=== PATIENT | female | born 1990 | race Caucasian/White ===

== ENCOUNTER → 2016-05-22 | Outpatient (CLI) | payer BC ==
[2016-05-22 08:58] LABS: Basophils % (A) 1 %; CH 31.8; CHCM 34.8; Eosinophils # (A) 0.1 k/uL (0-0.7); Eosinophils % (A) 2 %; HDW 2.79; Luc % (Auto) 2; Lymphocytes # (A) 1.8 k/uL (1.0-4.8); Lymphocytes % (A) 38 %; MCH 31.5 pg (25.0-35.0); MCHC 34.2 g/dL (31.0-37.0); Mean Platelet Volume 7.3; Monocytes # (A) 0.3 k/uL (0-1.0); Monocytes % (A) 7 %; Neutrophils # (A) 2.4 k/uL (1.3-7.7); Neutrophils % (A) 51 %; RBC 4.46 m/uL (3.80-5.40); RDW 12.8 % (11.5-15.5); WBC 4.8 k/uL (3.8-10.6)
== END | disposition home or self-care (01) ==
LOC: LABWHC1 08:28
PROVIDERS: ATTEND Psychiatry & Neurology Neurology
DX: G40.219 Localization-related (focal) (partial) symptomatic epilepsy and epileptic syndromes with complex partial seizures, intractable, without status epilepticus (principal)
CPT/HCPCS: 36415; 80164; 84450; 84460; 85025

== ENCOUNTER → 2016-05-22 | Outpatient (CLI) | payer BC ==
--- NOTE | 2016-05-22 10:37 | MR ---
EXAMINATION TYPE: MR lumbar spine wo con DATE OF EXAM: 05/22/2016 10:13 AM COMPARISON: NONE HISTORY: cerebral palsy w/spastic, difficulty walking TECHNIQUE: Multiplanar, multisequence images of the lumbar spine were acquired. L1-L2: Normal disc appearance without desiccation. No herniation, protrusion or disc bulging. No ca nal stenosis is present. Foramina are patent bilaterally. L2-L3: Normal disc appearance without desiccation. No herniation, protrusion or disc bulging. No ca nal stenosis is present. Foramina are patent bilaterally. L3-L4: Normal disc appearance without desiccation. No herniation, protrusion or disc bulging. No ca nal stenosis is present. Foramina are patent bilaterally. L4-L5: Mild disc desiccation noted. Mild posterior disc bulge. Retrolisthesis of L4 and L5 of 5.7 mm related to facet joint arthropathy. No central stenosis or ngoc herniation. L5-S1: Severe disc desiccation noted. Posterior disc bulge with annular tear. No evidence for ngoc h erniation or central stenosis. Grade 1 anterolisthesis L5 on S1 of 5 mm related to severe facet joint arthropathy. Lumbar segments are intact. No paraspinal masses are identified. Conus medullaris has a normal appe arance. IMPRESSION: 1. Degenerative disc disease with disc bulging as noted. 2. Retrolisthesis of L4 and L5 and anterolisthesis L5 on S1.
== END | disposition home or self-care (01) ==
LOC: RADMRIMAIN 09:36
PROVIDERS: ATTEND Psychiatry & Neurology Neurology
DX: M51.36 Other intervertebral disc degeneration, lumbar region (principal); M43.16 Spondylolisthesis, lumbar region; M43.17 Spondylolisthesis, lumbosacral region; G80.1 Spastic diplegic cerebral palsy
CPT/HCPCS: 72148

== ENCOUNTER → 2017-05-27 | Outpatient (CLI) | payer BC | END | disposition home or self-care (01) | LOC: LABWHC1 08:31 | PROVIDERS: ATTEND Psychiatry & Neurology Neurology | DX: G40.219 Localization-related (focal) (partial) symptomatic epilepsy and epileptic syndromes with complex partial seizures, intractable, without status epilepticus (principal) | CPT/HCPCS: 36415; 80164 ==

== ENCOUNTER → 2018-01-05 | Outpatient (CLI) | payer BC ==
[2018-01-05 09:02] LABS: HCT 40.2 % (34.0-46.0); HGB 13.5 gm/dL (11.4-16.0); RBC 4.44 m/uL (3.80-5.40); WBC 5.8 k/uL (3.8-10.6)
[2018-01-05 09:03] LABS: Basophils % (A) 1 %; Eosinophils # (A) 0.1 k/uL (0-0.7); Eosinophils % (A) 2 %; Lymphocytes # (A) 2.1 k/uL (1.0-4.8); Lymphocytes % (A) 36 %; MCH 30.4 pg (25.0-35.0); MCHC 33.7 g/dL (31.0-37.0); MCV 90.4 fL (80.0-100.0); Mean Platelet Volume 7.3; Monocytes # (A) 0.3 k/uL (0-1.0); Monocytes % (A) 5 %; Neutrophils # (A) 3.1 k/uL (1.3-7.7); Neutrophils % (A) 54 %; Platelet Count 227 k/uL (150-450); RDW 12.7 % (11.5-15.5)
[2018-01-05 16:13] LABS: Valproic Acid (Depakene) 98.8 ug/mL (50.0-100.0)
[2018-01-05 16:18] LABS: Vitamin D 25 Hydroxy 22.2 ng/mL (30.0-100.0)
[2018-01-05 16:39] LABS: Folate, Serum >24.0 ng/mL
[2018-01-05 17:19] LABS: Albumin 4.5 g/dL (3.80-4.90); Albumin/Globulin Ratio 1.61 (1.20-2.10); Anion Gap 8.7 mmol/L (4.00-12.00); Carbon Dioxide 22.3 mmol/L (21.6-31.8); Globulin 2.8 g/dL (2.1-3.7); Total Bilirubin 0.4 mg/dL (0.2-1.2); Total Protein 7.3 g/dL (6.2-8.2)
[2018-01-05 20:34] LABS: Hemoglobin A1C 4.5 % (4.0-6.0)
== END | disposition home or self-care (01) ==
LOC: LABWHC1 07:42
PROVIDERS: ATTEND Psychiatry & Neurology Neurology
DX: Z00.00 Encounter for general adult medical examination without abnormal findings (principal); G40.219 Localization-related (focal) (partial) symptomatic epilepsy and epileptic syndromes with complex partial seizures, intractable, without status epilepticus; R56.9 Unspecified convulsions; R41.3 Other amnesia
CPT/HCPCS: 36415; 80053; 80061; 80164; 82306; 82607; 82746; 83036; 84425; 85025

== ENCOUNTER → 2020-01-19 | Outpatient (CLI) | payer BC ==
--- NOTE | 2020-01-19 11:44 | US ---
EXAMINATION TYPE: US abdomen complete DATE OF EXAM: 01/19/2020 COMPARISON: NONE CLINICAL HISTORY: R10.9 Abdominal pain. Right lateral abdominal pain; patient has cerebral palsy - on medications for seizures and spasms EXAM MEASUREMENTS: Liver Length: 15.2 cm Gallbladder Wall: 0.4 cm CBD: 0.4 cm Spleen: 9.9 cm Right Kidney: 11.4 x 5.3x 4.5 cm Left Kidney: 11.8 x 5.9 x 4.4 cm Pancreas: mildly heterogeneous Liver: no masses seen Gallbladder: multiple, non mobile, shadowing stones with STANISLAW sign noted mid and fundal gallbladder; thickened wall is noted Evidence for sonographic Acosta's sign: no CBD: wnl Spleen: wnl Right Kidney: No hydronephrosis or masses seen Left Kidney: mid pole parallel hyperechoic focus with some shadowing may be calcified vessel marti. Upper IVC: wnl Abd Aorta: wnl There is no ascites. IMPRESSION: Cholelithiasis. Left nephrolithiasis may be present.
== END | disposition home or self-care (01) ==
LOC: RADUSWWP 10:51
PROVIDERS: ATTEND Nurse Practitioner Adult Health
DX: K80.20 Calculus of gallbladder without cholecystitis without obstruction (principal)
CPT/HCPCS: 76700

== ENCOUNTER 2020-02-17 09:56 | Day surgery (SDC) | payer BC ==
[2020-02-15 15:51] VITALS: BMI 28.3
--- NOTE | 2020-02-17 06:42 | P.GSHP ---
History of Present Illness H&P Date: 02/17/20 CHIEF COMPLAINT: Cholecystitis HISTORY OF PRESENT ILLNESS: The patient is a 29-year-old female who presents with history of epigastric including right upper quadrant abdominal pain. She underwent diagnostic studies for her gallbladder. Separately her clinical picture was consistent with cholecystitis. Now she presents for surgical intervention. PAST MEDICAL HISTORY: Please see list PAST SURGICAL HISTORY: Please see list MEDICATIONS: Please see list ALLERGIES: Please see list SOCIAL HISTORY: Please see list FAMILY HISTORY: Please see list REVIEW OF ORGAN SYSTEMS: CONSTITUTIONAL: No reports of fevers or chills. PSYCH: No depression or suicidal ideation. Has cognitive delay HEMATOLOGIC: No personal or family history of DVTs or pulmonary emboli. SKIN: No skin cancer. PHYSICAL EXAM: VITAL SIGNS: Afebrile vital signs stable GENERAL: Well-developed pleasant in no acute distress. HEENT: No scleral icterus. Extraocular movements grossly intact. Moist buccal mucosa. NECK: Supple without lymphadenopathy. CHEST: Unlabored respirations. Equal bilateral excursions. CARDIOVASCULAR: Regular rate regular rhythm rhythm. Distal 2+ pulses. ABDOMEN: Soft, nondistended. Tender along the epigastrium and right upper quadrant. MUSCULOSKELETAL: No clubbing, cyanosis, or edema. NEURO: Cranial nerves II to XII within normal limits. No focal or lateralizing signs. PSYCH: Alert and oriented to person, place and time. SKIN: Well-perfused good skin turgor. ASSESSMENT: 1. Epigastric and right upper quadrant abdominal pain 2. Chronic cholecystitis 3. Symptomatic gallstones. PLAN: 1. Will need a robotic cholecystectomy possible open. Benefits and risks were described. 2. Heparin for DVT prophylaxis 5000 units. 3. Antibiotic prophylaxis. Past Medical History Past Medical History: Seizure Disorder Additional Past Medical History / Comment(s): Cerebral Palsy. last seizure 2015. doesnt walk uses W/C has AFO on legs to help keep legs straight History of Any Multi-Drug Resistant Organisms: None Reported Past Surgical History: No Surgical Hx Reported Additional Past Surgical History / Comment(s): BILATERAL LEG LENGTHENING, BILATERAL EYE SURGERY (MUSCULAR TIGHTENING) multiple times with bone taken from hip placed in ankle Past Anesthesia/Blood Transfusion Reactions: Family History of Problems w/ Anesthesia, Postoperative Nausea & Vomiting (PONV) Additional Past Anesthesia/Blood Transfusion Reaction / Comment(s): mother states Eliane may become extremely anxious prior to procedure and may require medication for this (seizure has occured in past with extreme anxiety). MOM- PONV Smoking Status: Never smoker - Past Family History Mother Family Medical History: No Reported History Medications and Allergies Home Medications Medication Instructions Recorded Confirmed Type Baclofen [Lioresal] 20 mg PO TID 03/11/14 02/15/20 History Divalproex [Depakote] 250 mg PO TID 03/11/14 02/15/20 History LORazepam [Ativan] 1 mg PO TID PRN 05/16/14 02/15/20 History Divalproex Sodium [Depakote] 125 mg PO DAILY 03/05/15 02/15/20 History Cholecalciferol [Vitamin D3 (25 1,000 unit PO DAILY 02/15/20 02/15/20 History Mcg = 1000 Iu)] Topamax (Unkn.Dose) 1 tab PO BID 02/15/20 02/15/20 History medroxyPROGESTERone [Depo-Provera] 150 mg IM Q3M 02/15/20 02/15/20 History Allergies Allergy/AdvReac Type Severity Reaction Status Date / Time sulfamethoxazole Allergy reddened Verified 02/15/20 15:34 [From Bactrim] skin and itchy trimethoprim [From Bactrim] Allergy reddened Verified 02/15/20 15:34 skin and itchy
[~2020-02-17 09:56] MED LIST: ACETAMINOPHEN TAB 500 MG TAB PO STA; DEXAMETHASONE SOD PHOSPHATE 4 MG/ML 1 ML VIAL IV STA; GABAPENTIN 300 MG CAP PO STA; HEPARIN SODIUM,PORCINE 5,000 UNIT/ML 1 ML VIAL SQ PRN; INDOCYANINE GREEN 25 MG VIAL IV STA; LACTATED RINGERS 1,000 ML IV SCH; LIDOCAINE 1% (10MG/ML) FOR IV START INTRADERMA PRN
[2020-02-17] MEDS ORDERED: NORFLURANE/PENTAFLUOROPROPANE 103.5 ML SPRAY (PAIN EASE) TOPICAL ONE (10:10)
[2020-02-17] MEDS ORDERED: ONDANSETRON 4 MG/2 ML VIAL IVP ONE (10:36)
[2020-02-17] MEDS ORDERED: LACTATED RINGERS 1,000 ML IV ONE ×2 (10:37→15:03)
[2020-02-17 10:54] LABS: ALT 21 U/L (4-34); AST 33 U/L (14-36); African American GFR (CKD) >90 (>60 ml/min/1.73 sqM); Albumin 4.6 g/dL (3.5-5.0); Alkaline Phosphatase 53 U/L (38-126); Anion Gap 13 mmol/L; Blood Urea Nitrogen 9 mg/dL (7-17); Calcium 9.6 mg/dL (8.4-10.2); Carbon Dioxide 19 mmol/L (22-30); Chloride 110 mmol/L (98-107); Glucose 91 mg/dL (74-99); Non-African American GFR(CKD) >90 (>60 ml/min/1.73 sqM); Potassium 4.2 mmol/L (3.5-5.1); Sodium 142 mmol/L (137-145); Total Bilirubin 0.7 mg/dL (0.2-1.3); Total Protein 8.1 g/dL (6.3-8.2)
[2020-02-17 10:57] LABS: Basophils % (A) 1 %; Eosinophils # (A) 0.2 k/uL (0-0.7); Eosinophils % (A) 3 %; HCT 41.6 % (34.0-46.0); HGB 14.2 gm/dL (11.4-16.0); Lymphocytes # (A) 2.3 k/uL (1.0-4.8); Lymphocytes % (A) 39 %; MCH 30.9 pg (25.0-35.0); MCHC 34.2 g/dL (31.0-37.0); MCV 90.5 fL (80.0-100.0); Mean Platelet Volume 7.3; Monocytes # (A) 0.3 k/uL (0-1.0); Monocytes % (A) 6 %; Neutrophils % (A) 51 %; Platelet Count 258 k/uL (150-450); RDW 12.5 % (11.5-15.5)
[2020-02-17] MEDS ORDERED: HYDROmorphone (PF) 1 MG/ML ONE (11:08)
[2020-02-17] MEDS ORDERED: INDOCYANINE GREEN 25 MG VIAL IV ONE (11:08)
[2020-02-17] MEDS ORDERED: ROCURONIUM 10 MG/ML (10 ML VIAL) IV ONE (11:08)
[2020-02-17] MEDS ORDERED: fentaNYL (PF) 50 MCG/ML 2 ML AMP ONE (11:08)
[2020-02-17] MEDS ORDERED: LIDOCAINE 1% INJ 10MG/ML (20 ML MDV) ONE (11:08)
[2020-02-17] MEDS ORDERED: NEOSTIGMINE 1 MG/ML 10 ML VIAL ONE (11:08)
[2020-02-17] MEDS ORDERED: GLYCOPYRROLATE 0.2 MG/ML 2 ML VIAL ONE (11:08)
[2020-02-17] MEDS ORDERED: PROPOFOL 10 MG/ML 20 ML VIAL IV ONE (11:08)
[2020-02-17] MEDS ORDERED: MIDAZOLAM 2 MG/2 ML VIAL ONE (11:08)
[2020-02-17] MEDS ORDERED: LIDOCAINE 1%-EPI 1:100,000 20 ML VIAL SQ ONE (11:43)
[2020-02-17 12:48] VITALS: TEMP 100.2
[2020-02-17 12:54] VITALS: RESP 16
--- NOTE | 2020-02-17 13:19 | P.OP ---
Date of Procedure: 02/17/20 Description of Procedure: SURGEON: AGUEDA MURRAY MD PREOPERATIVE DIAGNOSES: 1. Symptomatic gallstone 2. Right upper quadrant abdominal pain 3. Cerebral palsy 4. Seizure disorder 5. Wheelchair status POSTOPERATIVE DIAGNOSES: 1. Symptomatic gallstone 2. Right upper quadrant abdominal pain 3. Chronic cholecystitis 4. Seizure disorder 5. Wheelchair status 6. 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 SPECIMENS REMOVED: Gallbladder. COMPLICATIONS: None. Operative Findings: 1. Large gallstone were 2 cm within the gallbladder 2. Cystic artery aneurysmal dilation identified and undisturbed 3. Abnormal contour of gallbladder adding complexity to case 4. Left upper quadrant incision widened for removal of large gallbladder INDICATIONS: The patient is a 29-year-old female who presents with symptomatic gallstones. Robotic assisted laparoscopic approach was described. Benefits and risks of the procedure including but not limited to bleeding, infection, injury to the biliary tree was described. Informed consent was obtained. DESCRIPTION OF PROCEDURE: Patient was brought to the operating room, placed in supine position. After general induction, the abdomen had been prepped and draped in standard sterile fashion. The robotic da Misha XI system was primed. After a timeout protocol was performed, the patient had been prepped and draped in standard sterile fashion. The patient was injected with indocyanine green. A 5 mm 0 degrees laparoscopic trocar entry was performed along the left upper quadrant. The abdomen insufflated to 15 mmHg pressure which was tolerated well. Diagnostic laparoscopy demonstrated no injury to bowel viscera or mesentery. The liver surface was unremarkable. Next, two 8 mm robotic ports were placed along the right upper abdomen. The camera 8-mm port was maintained along the epigastrium. Another 8 mm port was placed along the left upper abdominal wall after exchanging the 5 mm port. Please note that the ports were placed at least 10 to 15 cm away from the target anatomy of the gallbladder. The robot was docked along the left lateral abdomen. The patient was repositioned in reverse Trendelenburg position. Using a grasper for arm 3, a grasper for arm 4, including hook cautery for arm 1, the robotic system was docked and primed as described. Instruments were interchanged by the supply assistant including hook cautery, Bovie cautery and clip appliers. I had sat at the console. The gallbladder had an abnormal contour adding complexity to the case. Cystic artery aneurysmal dilation was identified and undisturbed. Next attention was brought to the infundibulum and cystic structures. The infundibulum and cystic duct were dissected free from surrounding tissues. The cystic duct was isolated. FIREFLY was used to identify the cystic artery and cystic structures. A critical view of safety was obtained. Large PLASTIC clips were used throughout the entire case. Using a clip marble installation helper, 2 clips were placed at the junction of the infundibulum and cystic duct. The cystic duct was divided between clips. Next, the cystic artery was similarly clipped and cauterized. Electro-Bovie cautery was used to remove the gallbladder from the hepatic fossa. Hemostasis was checked and found to be adequate. The robot was undocked. I re-scrubbed into the case. Using a 10 mm Endo Catch bag via the left upper quadrant incision, the specimen was removed from the abdominal cavity. All pneumoperitoneum instruments were evacuated from the abdominal cavity. The incisions were reapproximated using 4-0 Monocryl in an interrupted subcuticular fashion. The fascia of the left upper quadrant was widened to accommodate removal extremely large gallbladder multiple gallstones. The left upper quadrant fascia was closed using 0 Vicryl in Daniel [place]. Please note along the trocar sites, local anesthetic was placed as a field block prior to insertion of all instruments. Liquid glue was applied to the skin. At the end of the procedure needle, sponge, and instrument count had been verified correct by the surgical scheduler. The patient was transferred to postanesthesia care unit in stable condition. Intraoperative films were shared with the patient's family.
[2020-02-17 14:02] VITALS: BP 104/72; PULSE 87
== END 2020-02-17 15:54 | disposition home or self-care (01) ==
LOC: OR 09:56
PROVIDERS: ATTEND Surgery Plastic and Reconstructive Surgery
DX: K80.10 Calculus of gallbladder with chronic cholecystitis without obstruction (principal); K82.8 Other specified diseases of gallbladder; G80.9 Cerebral palsy, unspecified; K21.9 Gastro-esophageal reflux disease without esophagitis; G40.909 Epilepsy, unspecified, not intractable, without status epilepticus; Z99.3 Dependence on wheelchair; Z88.2 Allergy status to sulfonamides; Z79.3 Long term (current) use of hormonal contraceptives; Z79.899 Other long term (current) drug therapy; Z98.890 Other specified postprocedural states
CPT/HCPCS: 81025; 88304; 80053; 85025; 47562; J2250; J1644; J1100; J2710; J0690; J2405; J2001; J3010; J1170; J2704

== ENCOUNTER → 2021-02-12 | Outpatient (CLI) | payer BC ==
[2021-02-12 14:30] LABS: Basophils # (A) 0.03 X 10*3/uL (0.00-0.10); Basophils % (A) 0.6 %; Eosinophils % (A) 1.9 %; HCT 39.6 % (37.2-46.3); HGB 13.6 g/dL (12.0-15.0); Lymphocytes # (A) 2.04 X 10*3/uL (0.90-5.00); Lymphocytes % (A) 38.2 %; MCH 31.6 pg (27.0-32.0); MCHC 34.3 g/dL (32.0-37.0); MCV 91.9 fL (80.0-97.0); Mean Platelet Volume 10.2 fL (9.5-12.2); Monocytes # (A) 0.38 X 10*3/uL (0.20-1.00); Monocytes % (A) 7.1 %; Neutrophils # (A) 2.77 X 10*3/uL (1.80-7.70); Neutrophils % (A) 51.8 %; Platelet Count 242 X 10*3/uL (140-440); RBC 4.31 X 10*6/uL (4.10-5.20); RDW 11.9 % (11.5-14.5); WBC 5.34 X 10*3/uL (4.50-10.00)
[2021-02-12 16:21] LABS: ALT 25 U/L (8-44); AST 23 U/L (13-35); African American GFR (CKD) 140.4 (60.0-200.0); Albumin 4.5 g/dL (3.8-4.9); Albumin/Globulin Ratio 1.56 (1.60-3.17); Alkaline Phosphatase 49 U/L (41-126); BUN/Creat Ratio 17.27 Ratio (12.00-20.00); Blood Urea Nitrogen 10.9 mg/dL (9.0-27.0); Calcium 9.4 mg/dL (8.7-10.3); Chloride 108 mmol/L (96-109); Chol/HDL Ratio 3.39 Ratio; Globulin 2.9 g/dL (1.6-3.3); Glucose 83 mg/dL (70-110); Non-African American GFR(CKD) 121.2 (60.0-200.0); Potassium 4.1 mmol/L (3.5-5.5); Sodium 142 mmol/L (135-145); Total Protein 7.3 g/dL (6.2-8.2)
[2021-02-12 20:58] LABS: Valproic Acid (Depakene) 63.6 ug/mL (50.0-100.0)
== END | disposition home or self-care (01) ==
LOC: LABWHC1 09:34
PROVIDERS: ATTEND Psychiatry & Neurology Neurology
DX: Z00.00 Encounter for general adult medical examination without abnormal findings (principal); G80.1 Spastic diplegic cerebral palsy
CPT/HCPCS: 36415; 80053; 80061; 80164; 83036; 84443; 85025

== ENCOUNTER → 2022-09-11 | Outpatient (CLI) | payer BC ==
--- NOTE | 2022-09-12 12:59 | CA ---
Transthoracic Echo Report Name: Eliane Medina Age: 32 Gender: F : 1990 Exam Date: 09/11/2022 11:24 Exam Location: [facility] Ht (in): 64 Wt (lb): 165 Ordering Physician: Dion Uribe MD Attending/Referring Phys: Anita Loco PAC [employer] Supervisor Georgiana Luu RDCS Procedure CPT: Indications: R600 Cardiac Hx: Technical Quality: Fair Contrast 1: Total Dose (mL): Contrast 2: Total Dose (mL): MEASUREMENTS (Male / Female) Normal Values 2D ECHO LV Diastolic Diameter PLAX 4.4 cm 4.2 - 5.9 / 3.9 - 5.3 cm LV Systolic Diameter PLAX 2.6 cm IVS Diastolic Thickness 0.9 cm 0.6 - 1.0 / 0.6 - 0.9 cm LVPW Diastolic Thickness 0.9 cm 0.6 - 1.0 / 0.6 - 0.9 cm LV Relative Wall Thickness 0.4 RV Internal Dim ED PLAX 2.9 cm LA Volume 19.4 cm??? 18 - 58 / 22 - 52 cm??? M-MODE Aortic Root Diameter MM 2.9 cm LA Systolic Diameter MM 2.6 cm LA Ao Ratio MM 0.9 AV Cusp Separation MM 2.1 cm DOPPLER AV Peak Velocity 157.3 cm/s AV Peak Gradient 9.9 mmHg AV Mean Velocity 106.6 cm/s AV Mean Gradient 5.0 mmHg AV Velocity Time Integral 25.6 cm LVOT Peak Velocity 99.2 cm/s LVOT Peak Gradient 3.9 mmHg LVOT Velocity Time Integral 20.0 cm MV Area PHT 2.7 cm??? Mitral E Point Velocity 85.2 cm/s Mitral A Point Velocity 83.4 cm/s Mitral E to A Ratio 1.0 MV Deceleration Time 279.3 ms MV E' Velocity 9.7 cm/s Mitral E to MV E' Ratio 8.8 TR Peak Velocity 174.9 cm/s TR Peak Gradient 12.2 mmHg Right Ventricular Systolic Press 17.2 mmHg FINDINGS Left Ventricle Normal Left ventricular size, wall thickness, systolic function with no obvious regional wall motion abnormalities. Normal Left ventricular diastolic filling pattern. Left ventricular ejection fraction is estimated at 55-60 %. Right Ventricle Normal right ventricular size and function. Right ventricular systolic pressure within normal limits. Right Atrium Normal right atrial size. Left Atrium Normal left atrial size. Mitral Valve Structurally normal mitral valve. No mitral stenosis, regurgitation or prolapse. Aortic Valve No aortic valve stenosis or regurgitation. Tricuspid Valve Mild tricuspid regurgitation. Pulmonic Valve Trace pulmonic regurgitation. Pericardium No pericardial effusion. Aorta Normal size aortic root and proximal ascending aorta. CONCLUSIONS Normal LV size and systolic function. No significant abnormality in the Doppler exam. No pericardial effusion Previewed by: Dr. Shaunna Evans MD (Electronically Signed) Final Date: 12 September 2022 12:58
== END | disposition home or self-care (01) ==
LOC: RADECHMAIN 11:08
PROVIDERS: ATTEND Family Medicine
DX: R60.0 Localized edema (principal)
CPT/HCPCS: 93306